=== PATIENT | male | born 1960 | race Caucasian/White ===

== ENCOUNTER 2023-11-07 09:18 | Observation (INO) ==
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
[~2023-11-07 09:18] MED LIST: ACETAMINOPHEN 1000 MG/100 ML IV IV ONE; LACTATED RINGER'S 1,000 ML IV SCH; LR 15ML/HR IV SCH
[2023-11-07] MEDS ORDERED: ATROPINE SULFATE 0.1 MG/ML 10ML SYR IV PRN (10:35)
[2023-11-07] MEDS ORDERED: PROMETHAZINE HCL 6.25 MG in SODIUM CHLORIDE 0.9% 50 ML IV PRN (10:35)
[2023-11-07] MEDS ORDERED: LIDOCAINE 2% 2 ML VIAL/AMP(20MG/ML) INFIL ONE (10:35)
[2023-11-07] MEDS ORDERED: MIDAZOLAM HCL 1 MG/ML 2ML VIAL ONE (10:35)
[2023-11-07] MEDS ORDERED: PROPOFOL IV EMULSION 10 MG/ML 20 ML VIAL IV ONE (10:35)
[2023-11-07] MEDS ORDERED: HYDROmorphone INJ 2 MG/ML SYR/VIAL IV PRN (10:35)
[2023-11-07] MEDS ORDERED: ONDANSETRON INJ 2 MG/ML 2 ML VIAL IV PRN ×2 (10:35→16:49)
[2023-11-07] MEDS ORDERED: ONDANSETRON INJ 2 MG/ML 2 ML VIAL ONE ×2 (10:35→14:57)
[2023-11-07] MEDS ORDERED: ROCURONIUM BROMIDE 10 MG/ML 5 ML VIAL IV ONE ×3 (10:35→14:11)
[2023-11-07] MEDS ORDERED: ePHEDrine sulfate 50 MG/ML AMP IV PRN (10:35)
[2023-11-07] MEDS ORDERED: DEXAMETHASONE SOD INJ 4 MG/ML VIAL ONE (10:35)
[2023-11-07] MEDS ORDERED: fentaNYL citrate PF 100 MCG/2 ML VIAL ONE ×3 (10:36→14:11)
--- NOTE | 2023-11-07 11:30 | History & Physical Bridge Note ---
Date of Service November 07, 2023 History & Physical Bridge Note I have examined the patient, reviewed the History & Physical and in the interval since the performance of the History & Physical I have noted the following changes of clinical significance: no changes noted
[2023-11-07] MEDS ORDERED: BUPIVACAINE 0.5 % 5 MG/1 ML MPF 30ML VIAL ONE (11:42)
[2023-11-07] MEDS ORDERED: FLOSEAL HEMOSTATIC MATRIX 10ML TOP ONE (12:39)
[2023-11-07] MEDS ORDERED: SURGICEL ABSORB HEMOSTAT 2IN X 14IN TOP ONE (12:39)
[2023-11-07] MEDS ORDERED: KETOROLAC 30 MG/ML VIAL ONE (14:56)
[2023-11-07] MEDS ORDERED: SUGAMMADEX SODIUM 200 MG/2 ML VIAL IV ONE (14:57)
[2023-11-07] MEDS ORDERED: HYDROmorphone INJ 2 MG/ML SYR/VIAL ONE (15:16)
--- NOTE | 2023-11-07 15:35 | Operative Report ---
PG Post Operative Report Pre & Post Diagnosis Operation Date: 11/07/23 11:00 Pre-Op Diagnosis: Prostate Cancer Post-Op Diagnosis: Prostate Cancer I identified the patient and participated in the time-out.: Yes Procedure Operation Date: 11/07/23 11:00 Actual Procedures p Robotic Assisted Laparoscopic Radical Retropubic Prostatectomy(Not Applicable) - Hayden Gee MD Surgeon Hayden Gee MD Poultry Picker Teagan Sosa Estimated Blood Loss 150 Findings Consistent with Post-Op Diagnosis Specimens 1. Periprostatic fat 2. Prostate seminal vesicles Description of Procedure The patient was identified in the preoperative holding area, appropriate informed consents were reviewed and completed, and he was transported to the operating suite. Subcutaneous heparin was administered in the pre-operative holding area. Upon arrival in the operating suite, he received appropriate antibiotics and general anesthesia. He was positioned in dorsal lithotomy and prepped and draped in standard fashion. A Lockett catheter was inserted in the sterile field. A Veress needle was passed per umbilicus with uniform insufflation of the abdomen to 15mmHg. He was placed in steep Trendelenburg position. A periumbilical incision was then made to accommodate a 8mm Visiport with 0degree laparoscope. Inspection of the abdomen was carried out, and there was no evidence of traumatic entry or injury secondary to the Veress needle. After confirming a clear anterior abdominal wall, ports were subsequently placed in standard robotic prostatectomy fashion without incident. To begin the robotic portion of the case, the left lateral aspect of the sigmoid was mobilized off of the left pelvic side wall to allow the pouch of Iggy to be appropriately visualized. I then made an incision in the pouch of Iggy, overlying the seminal vesicles. Both SVs as well as the ampullae of the vasa were entirely dissected, with the vasa transected 3cm from the prostate. The medial umbilical ligaments were then controlled with bipolar electrocautery just inferior to the umbilicus. Following cauterization, they were divided utilizing monopolar cautery. A peritoneal incision was carried from this location to the medial aspect of the internal inguinal rings bilaterally with care to avoid opening through the ring. This incision was concluded when the vas deferens was reached. Dissection of the bladder and prostate off of the posterior aspect of the pubic arch was completed allowing full visualization of the prostate. The fat overlying the prostate was removed en bloc and passed off the table as a specimen labeled "periprostatic fat". The endopelvic fascia was cleared during this portion of the procedure, and subsequently opened - first on the right and then the left. The incision through the endopelvic fascia began near the prostate-bladder junction and was carried to the apex with extreme care to preserve all lateral levator musculature as well as the periurethral musculature and sphincter complex. I additionally preserved the puboprostatic ligaments. I then controlled the DVC with a 3-0 V-lock suture in overlapping/figure of 8 fashion. Given his low volume and low grade disease, a lymph node dissection was not indicated. My attention then returned to the prostate, with identification of the bladder neck aided by gentle traction on the Lockett catheter and lateral to medial pressure at the presumed level of the bladder neck with the robotic instruments. An anterior cystotomy was made, the Lockett balloon deflated and the catheter guided through the incision to allow anterior retraction. I attempted to preserve maximal bladder neck musculature as I circumferentially dissected around the bladder neck. Of note, his anterior to posterior distance across the prostate was quite long and his gland while short in length was relatively wide. After incision through the posterior aspect of the mucosa, the dissection was carried through detrusor muscle until the bilateral ampullae of the vasa were identified. The previously dissected vasa and SVs were brought through the incision and used to elevated the prostate anteriorly. A posterior plane behind the prostate was then developed - splitting Denonvilliers's fascia. This dissection was carried as far as possible towards the apex as well as far as possible laterally. An incision in the lateral prostatic fascia was then made bilaterally to facilitate control of the vascular pedicles and preservation of the nerve bundles. Vasculature running along the posterior/lateral aspect of the prostate was preserved as well as the tissue containing the nerves. The pedicles were then controlled with a series of Weck clips and judicious use of bipolar electrocautery. The apical attachments of the prostate were remaining at that stage. The DVC was divided after control with bipolar cautery over the prostate. Continuous inspection from anterior and lateral views allowed me to closely follow the apical contour of the prostate and maximally preserve urethral length and tissue. The prostate was entirely freed at that point, and collected in an EndoCatch bag before being moved out of the field of vision. Hemostasis was confirmed and anastomosis of the bladder and urethra was completed utilizing a double armed V- Lock stitch. A new Lockett catheter was inserted and the anastomosis tested with irrigation. There was no evidence of leak. The robot was undocked, the specimen was extracted through the right 12 mm nutritional assistant port after gentle expansion. The fascia of that port was closed with a running PDS suture. All other incisions were closed with 4-0 Monocryl. All incisions were infiltrated with half percent Marcaine prior to closure. Dermabond was used as a topical dressing. He was reversed from anesthesia and taken to the recovery room in stable condition. Teagan Sosa assisted from incision to closure I attest to the content of the Intraoperative Record and any orders documented therein. Any exceptions are noted below.
[2023-11-07] MEDS: fentaNYL citrate PF 100 MCG/2 ML VIAL IV PRN ×2 (15:36→15:41)
--- NOTE | 2023-11-07 15:40 | Anesthesiology Progress Note ---
Date of Service November 07, 2023 Anesthesia Post Procedure Vital Signs Vital Signs: Temp Pulse Resp BP Pulse Ox O2 Del Method 11/07/23 10:13 36.9 C 95 H 20 154/106 H 98 Room Air Transfer of Care Handoff Completed per policy Notes Mental Status: alert / awake / arousable Patient Amnestic to Procedure: Yes Nausea / Vomiting: adequately controlled Pain: adequately controlled Airway Patency, RR, SpO2: stable & adequate BP & HR: stable & adequate Hydration State: stable & adequate Anesthetic Complications: no major complications apparent
[2023-11-07 15:59] LABS: Hemoglobin 14.2 g/dl (14.0-18.0); Mean Corpuscular Hemoglobin 31.6 pg (25.0-34.0); Mean Corpuscular Hgb Conc 33.8 g/dL (32.0-36.0); Mean Corpuscular Volume 93.5 fL (80.0-100.0); Mean Platelet Volume 8.4 fL (9.4-12.4); Platelet Count 220 K/uL (130-400); RDW Coefficient of Variation 12.3 % (11.5-14.5); RDW Standard Deviation 42.5 fL (36.4-46.3); Red Blood Count 4.49 M/uL (4.70-6.10); White Blood Count 12.74 K/ul (4.8-10.8)
[2023-11-07 16:15] LABS: BUN Creatinine Ratio 11.8 (10-20); Calcium 8.6 mg/dl (8.6-10.3); Est GFR (African American) 74.4 ml/min; Est GFR (Non-African American) 64.2 ml/min; Potassium 4.8 mmol/L (3.5-5.1)
[2023-11-07 16:27] LABS: Basophils # (auto) 0.03 K/uL (0.00-0.20); Basophils % (auto) 0.2 %; Eosinophils # (auto) 0.05 K/uL (0.00-0.50); Eosinophils % (auto) 0.4 %; Immature Granulocytes # (auto) 0.07 K/uL (0.01-0.20); Immature Granulocytes % (auto) 0.5 %; Lymphocytes # (auto) 0.73 K/uL (1.20-3.40); Lymphocytes % (auto) 5.7 %; Monocytes # (auto) 0.23 K/uL (0.11-0.59); Monocytes % (auto) 1.8 %; Neutrophils # (auto) 11.63 K/uL (1.40-6.50); Neutrophils % (auto) 91.4 %
[2023-11-07] MEDS ORDERED: oxyCODONE HCL IR 5 MG TAB (IMMEDIATE RELEASE) PO PRN (16:49)
[2023-11-07] MEDS ORDERED: PHARMACY GLYCEMIC MGMT CONSULT PRN (16:49)
[2023-11-07] MEDS ORDERED: MoRPHine SULFATE 2 MG/ML CARP IV PRN (16:49)
[2023-11-07] MEDS: oxyCODONE HCL IR 5 MG TAB (IMMEDIATE RELEASE) PO PRN ×2 (17:15→23:31)
[2023-11-07] MEDS ORDERED: LANTUS PER UNIT CHARGE SC SCH ×2 (17:30→21:00)
[2023-11-07] MEDS: INSULIN ASPART PER UNIT CHARGE SC SCH ×2 (17:47→20:50)
[2023-11-07] MEDS: ACETAMINOPHEN 325 MG TAB PO SCH ×2 (17:47→23:32)
[2023-11-07] MEDS: LACTATED RINGER'S 1,000 ML IV SCH (17:53)
[2023-11-07] MEDS: ceFAZolin 2000MG 2,000 MG/15 ML SYR IV SCH (20:25)
[2023-11-07] MEDS: DOCUSATE SODIUM 100 MG CAP PO SCH (20:26)
[2023-11-07] MEDS: HEPARIN SOD 5,000 UNIT/0.5 ML VIAL SQ SCH (20:26)
[2023-11-07] MEDS: MoRPHine SULFATE 4 MG/ML 1 ML CARP\\VIAL IV PRN (20:39)
[2023-11-08] MEDS: LACTATED RINGER'S 1,000 ML IV SCH (03:29)
[2023-11-08] MEDS: ceFAZolin 2000MG 2,000 MG/15 ML SYR IV SCH (03:30)
[2023-11-08] MEDS: oxyCODONE HCL IR 5 MG TAB (IMMEDIATE RELEASE) PO PRN ×4 (03:35→20:17)
[2023-11-08] MEDS: ACETAMINOPHEN 325 MG TAB PO SCH ×3 (05:24→17:20)
[2023-11-08] MEDS: MoRPHine SULFATE 4 MG/ML 1 ML CARP\\VIAL IV PRN ×3 (05:28→17:15)
[2023-11-08 06:32] LABS: Basophils # (auto) 0.03 K/uL (0.00-0.20); Basophils % (auto) 0.2 %; Eosinophils # (auto) 0.07 K/uL (0.00-0.50); Eosinophils % (auto) 0.6 %; Immature Granulocytes # (auto) 0.06 K/uL (0.01-0.20); Immature Granulocytes % (auto) 0.5 %; Lymphocytes % (auto) 10.5 %; Mean Corpuscular Hemoglobin 31.3 pg (25.0-34.0); Mean Corpuscular Hgb Conc 33.3 g/dL (32.0-36.0); Mean Corpuscular Volume 93.8 fL (80.0-100.0); Mean Platelet Volume 8.5 fL (9.4-12.4); Monocytes # (auto) 1.06 K/uL (0.11-0.59); Monocytes % (auto) 8.6 %; Neutrophils # (auto) 9.82 K/uL (1.40-6.50); Neutrophils % (auto) 79.6 %; Platelet Count 215 K/uL (130-400); RDW Coefficient of Variation 12.7 % (11.5-14.5); RDW Standard Deviation 43.7 fL (36.4-46.3); Red Blood Count 4.16 M/uL (4.70-6.10); White Blood Count 12.34 K/ul (4.8-10.8)
[2023-11-08 06:52] LABS: BUN Creatinine Ratio 16.8 (10-20); Calcium 8.5 mg/dl (8.6-10.3); Creatinine Clr Calc Pharmacy 82.3 ml/min; Est GFR (African American) 84.6 ml/min; Potassium 4.3 mmol/L (3.5-5.1)
[2023-11-08 07:36] LABS: Estimated Average Glucose 189 mg/dl; Hemoglobin A1C 8.2 % (4.5-5.6)
[2023-11-08] MEDS: INSULIN ASPART PER UNIT CHARGE SC SCH ×4 (07:51→21:44)
[2023-11-08] MEDS: lisinopril 40 MG TAB PO SCH (07:52)
[2023-11-08] MEDS: DICLOFENAC SODIUM 75 MG TABCR PO SCH (07:52)
[2023-11-08] MEDS: METOPROLOL SUCC 25MG EXT REL TAB PO SCH (07:52)
[2023-11-08] MEDS: METOPROLOL SUCC 50MG EXT REL TAB PO SCH (07:52)
[2023-11-08] MEDS: amLODIPine BESYLATE 5 MG TAB PO SCH (07:52)
[2023-11-08] MEDS: DOCUSATE SODIUM 100 MG CAP PO SCH ×2 (07:53→20:18)
[2023-11-08] MEDS: HEPARIN SOD 5,000 UNIT/0.5 ML VIAL SQ SCH ×2 (07:53→20:18)
--- NOTE | 2023-11-08 08:12 | Urology Progress Note ---
Date of Service November 08, 2023 Assessment & Plan (1) Prostate cancer: Plan: Postop day #1 status post robotic prostatectomy Recovering appropriately Ambulate Advance diet Maintain Lockett Discharge home Labs all stable Admission and Anticipated Discharge Date Admission Date: November 07, 2023 Subjective Doing well this morning Modest pain No nausea Hungry and asking for diet Anxious to go home Physical Exam Physical Exam: Abdomen soft, incisions appropriate Urine output clear Results & Data Vital Signs (Past 12 Hours) Vital Signs Temp Pulse Pulse Resp BP Pulse Ox O2 Del Method 11/08/23 07:34 36.8 C 76 16 130/86 95 Room Air 11/08/23 02:56 36.7 C 72 18 115/73 96 Room Air 11/07/23 23:57 36.6 C 83 18 125/81 97 Room Air 11/07/23 20:26 Nasal Cannula O2 Flow Rate 11/08/23 07:34 11/08/23 02:56 11/07/23 23:57 11/07/23 20:26 1 PG Care Time/CCT Total # of Minutes Spent Total Time Spent with Patient: Total time spent is greater than 50% in coordination of care (as documented) at patient's floor/unit and/or counseling patient: Coding Level of Care Code None Diagnoses Prostate cancer C61
--- NOTE | 2023-11-08 09:52 | Pharmacy Report ---
Pharmacy Glycemic Short Note 2 - Date of Service November 08, 2023 - Glycemic Short BSG Results (Last 24 hours): 11/07/23 11/07/23 11/07/23 10:25 15:29 15:40 Glucose 235 H POC Glucose 154 H 222 H 11/07/23 11/07/23 11/08/23 17:36 20:37 05:54 Glucose 123 H POC Glucose 252 H 231 H 11/08/23 07:36 Glucose POC Glucose 116 H OUTPATIENT ANTIDIABETIC REGIMEN: * metformin ER 1500mg QAM * Jardiance 10mg QAM * Semaglutide 14 mg PO QAM * glimeperide 6mg PO QAM * HbA1c 8.2% (11/08/23) ASSESSMENT: * Morgan is a 63 YOM admitted status post prostatectomy secondary to prostate cancer with a history of T2DM. Pharmacy has been consulted for glycemic management while inpatient. * Preoperative BSG slightly above goal range yesterday. Received 4 mg of IV dexamethasone during procedure. BSGs significantly increased by the afternoon. Given 20 units of Lantus total to cover steroids and Novolog initiated at a weight based stress of 2. * Morgan received 40 units of insulin yesterday (20 basal) * Fasting BSG this AM in goal range, no ongoing steroids ordered will hold basal insulin for now * Will loosen Novolog as no ongoing steroids are ordered. * Diet advanced this morning, will continue to monitor for increased insulin needs PLAN FOR INPATIENT GLYCEMIC CONTROL: * Hold outpatient oral diabetes medications * Basal insulin * hold for now * Bolus insulin * NovoLog per scale ACHS or Q6hrs while NPO * Goal Range: Low 110 mg/dL - High 140 mg/dL * Correction Factor: 20 mg/dL/unit * Nutritional / Prandial insulin per carb ratio of 1 unit per 6 grams CHO consumed
[2023-11-09] MEDS: ACETAMINOPHEN 325 MG TAB PO SCH ×2 (00:10→05:47)
[2023-11-09] MEDS: oxyCODONE HCL IR 5 MG TAB (IMMEDIATE RELEASE) PO PRN ×2 (01:13→05:47)
[2023-11-09 06:52] LABS: Basophils # (auto) 0.04 K/uL (0.00-0.20); Basophils % (auto) 0.4 %; Eosinophils % (auto) 2.9 %; Hematocrit (blood only) 38.1 % (42.0-52.0); Hemoglobin 13.1 g/dl (14.0-18.0); Immature Granulocytes # (auto) 0.05 K/uL (0.01-0.20); Immature Granulocytes % (auto) 0.5 %; Lymphocytes # (auto) 1.85 K/uL (1.20-3.40); Lymphocytes % (auto) 17.6 %; Mean Corpuscular Hemoglobin 32.3 pg (25.0-34.0); Mean Corpuscular Hgb Conc 34.4 g/dL (32.0-36.0); Mean Corpuscular Volume 94.1 fL (80.0-100.0); Mean Platelet Volume 8.8 fL (9.4-12.4); Monocytes # (auto) 0.98 K/uL (0.11-0.59); Monocytes % (auto) 9.3 %; Neutrophils # (auto) 7.27 K/uL (1.40-6.50); Neutrophils % (auto) 69.3 %; Platelet Count 175 K/uL (130-400); RDW Coefficient of Variation 12.8 % (11.5-14.5); RDW Standard Deviation 44.2 fL (36.4-46.3); Red Blood Count 4.05 M/uL (4.70-6.10); White Blood Count 10.49 K/ul (4.8-10.8)
[2023-11-09 07:20] LABS: BUN Creatinine Ratio 18.5 (10-20); Calcium 8.4 mg/dl (8.6-10.3); Creatinine Clr Calc Pharmacy 81.5 ml/min; Est GFR (African American) 83.6 ml/min; Est GFR (Non-African American) 72.2 ml/min
[2023-11-09] MEDS: DICLOFENAC SODIUM 75 MG TABCR PO SCH (07:29)
[2023-11-09] MEDS: lisinopril 40 MG TAB PO SCH (07:29)
[2023-11-09] MEDS: METOPROLOL SUCC 50MG EXT REL TAB PO SCH (07:29)
[2023-11-09] MEDS: METOPROLOL SUCC 25MG EXT REL TAB PO SCH (07:29)
[2023-11-09] MEDS: amLODIPine BESYLATE 5 MG TAB PO SCH (07:29)
[2023-11-09] MEDS: HEPARIN SOD 5,000 UNIT/0.5 ML VIAL SQ SCH (07:30)
[2023-11-09] MEDS: DOCUSATE SODIUM 100 MG CAP PO SCH (07:30)
--- NOTE | 2023-11-09 08:25 | Urology Progress Note ---
Date of Service November 09, 2023 Assessment & Plan (1) Prostate cancer: Plan: POD#2 s/p status post robotic prostatectomy with Dr. Gee Afebrile, hemodynamically stable Labs stable Recovering appropriately Subjectively doing much better today Pain is adequately controlled Ambulating and tolerating diet Maintain Lockett Discharge to home today with catheter Expected clinical course reviewed, all questions answered Will arrange outpatient follow-ups for catheter removal and pathology review Admission and Anticipated Discharge Date Admission Date: November 07, 2023 Subjective Doing much better this morning Pain adequately controlled He has been ambulating in the hallway Tolerating diet No nausea or vomiting, + Flatus Lockett patent and draining clear urine No fever or chills Feels ready to go home today Review of Systems Constitutional: as per Subjective / HPI Gastrointestinal: as per Subjective / HPI Genitourinary: + as per Subjective / HPI Physical Exam Constitutional: well developed and well nourished; no acute distress Respiratory: normal respiratory effort; no respiratory distress and no labored breathing Gastrointestinal (Abdomen): Percussion/Palpation: abdomen soft Musculoskeletal: Head/Neck/Chest: normocephalic Skin: Incisions appropriate Neurologic: moves all extremities and awake Psychiatric: Orientation: alert and oriented x 3 Genitourinary: Lockett draining clear yellow urine Results & Data Vital Signs (Past 12 Hours) Vital Signs Temp Pulse Resp BP Pulse Ox O2 Del Method 11/09/23 07:22 36.6 C 76 16 133/86 98 Room Air 11/08/23 20:17 Room Air PG Care Time/CCT Total # of Minutes Spent Total Time Spent with Patient: Total time spent is greater than 50% in coordination of care (as documented) at patient's floor/unit and/or counseling patient: Coding Level of Care Code None Diagnoses Prostate cancer C61
--- NOTE | 2023-11-09 08:27 | Discharge Summary ---
Date of Service November 09, 2023 Admission HPI Per Admitting Provider Patient with prostate cancer here for robotic prostatectomy. Admission Exam Per Admitting Provider General: Alert and oriented, no acute distress HEENT: Normocephalic, mucous membranes moist Pulmonary: Nonlabored respirations Abdomen: Nondistended Extremities: Moves all 4 spontaneously Neuro: No gross deficits Skin: Warm, dry, no rashes noted Principal Diagnosis Prostate Cancer Discharge Exam Constitutional well developed and well nourished; no acute distress Respiratory normal respiratory effort; no respiratory distress and no labored breathing Gastrointestinal (Abdomen) Percussion/Palpation: abdomen soft Musculoskeletal Head/Neck/Chest: normocephalic Neurologic moves all extremities and awake Psychiatric Orientation: alert and oriented x 3 Genitourinary Lockett draining clear yellow urine Discharge Data Allergies Allergy/AdvReac Type Severity Reaction Status Date / Time No Known Allergies Allergy Verified 11/07/23 10:00 Procedures Performed Operation Date: 11/07/23 11:00 Actual Procedures p Robotic Assisted Laparoscopic Radical Retropubic Prostatectomy(Not Applicable) - Hayden Gee MD Hospital Course (1) Prostate cancer: POD#2 s/p status post robotic prostatectomy with Dr. Gee Afebrile, hemodynamically stable Labs stable Recovering appropriately Subjectively doing much better today Pain is adequately controlled Ambulating and tolerating diet Maintain Lockett Discharge to home today with catheter Expected clinical course reviewed, all questions answered Will arrange outpatient follow-ups for catheter removal and pathology review Total Time Total Time Spent Total Time Spent (In Minutes): 29 Discharge Plan Discharge Items Patient Disposition: Home - Self-Care Reason For Visit: Prostate Cancer Discharge Diagnosis: Prostate cancer Activity: Per Instructions section Lifting: No more than 25 pounds Bathing Comment: Okay to shower after discharge, no tub bath or soaking Sexual Activity: Wait until after follow-up appointment Exercise/Sports: Wait until after follow-up appointment Driving/Machine Use: No driving while taking prescription pain medication Non-emergency contact: Surgeon and Urologist Call non-emergency contact if: your pain is not controlled, you have a fever, your temperature is above 101, your wound has increased redness, your wound has increased drainage and your wound pain has increased Follow-up/Referrals: Johnny Somers MD [Primary Care Provider] - Diet: Carb Consistent or DM2 Addtl Attending Provider Instructions: Please take all medications as prescribed and keep all follow-ups as scheduled. Please call our office at [phone] with any questions, concerns or need to reschedule appointments for any reason. We are happy to assist you. We have sent an antibiotic to your pharmacy of choice. Please begin antibiotic as prescribed the day BEFORE your scheduled voiding trial at [facility]. Please continue antibiotic every 12 hours through the day AFTER your voiding trial. Activity: We recommend having someone with you for the first few days after surgery to help care for you. For the first 2 weeks after surgery, we would like you to get up and walk around your house. However, we recommend limit physical activity that would increase your heart rate. This will allow your body to rest and heal. Take naps if you feel tired. Don't lift anything heavier than 10 pounds, mow the law or ride a bicycle until your follow-up appointment. Please avoid long car rides. Home Care: Unless directed otherwise, drink 6 to 8 glasses of water a day (enough to keep your urine light colored). This will also help keep a healthy flow of urine. We recommend using a stool softener for the first two weeks to avoid constipation. Lockett Catheter or Suprapubic Catheter care: Keep the catheter well secured with either a leg back or leg strap with large bag. Empty your bag when it's about half full. You may notice some blood in the bag. This is normal after surgery and while the catheter is in place. Use mild soap (such as Dove or Dial) and water to wash the catheter and the head of your penis daily, or more frequently if needed. Return to your normal diet, we encourage good protein intake to promote healing. You may shower as normal. Please avoid tub baths or soaking until catheter removed and incisions well healed. Wearing sweat pants while you have the catheter is recommended, they will be more comfortable. Follow-up Your follow up appointments for having your catheter removed, and follow up with your physician should already be scheduled. If you have any questions regarding this, please contact our office. Your final pathology report will be discussed at your physician follow-up appointment. Call [facility] at [phone] right away if you have any of the following: Chest pain or trouble breathing (call 911 or go to the hospital) Fever of 101F or higher, uncontrolled vomiting Heavy bleeding, clots, or bright red blood from the catheter Catheter that falls out or stops draining Foul-smelling discharge from your catheter Redness, swelling, warmth, or increased pain at your incision site Drainage, pus, or bleeding from your incision Pending Studies at Discharge: Yes (pathology) Stand-Alone Forms: My [facility], Pain - Opioid Pain Management, Smoking Cessation Medications and DC Order Prescriptions: New ciprofloxacin HCl 500 mg tablet 500 mg PO BID Qty: 6 0RF Rx Instructions: Start 1 day prior to catheter removal docusate sodium [Colace] 100 mg capsule 100 mg PO BID Qty: 60 0RF Rx Instructions: Take twice daily for 2 weeks, then as needed for constipation. oxycodone-acetaminophen [Percocet] 5-325 mg tablet 1 tab PO TID PRN (Reason: pain) Qty: 10 0RF Rx Instructions: post op pain Continued diclofenac sodium 75 mg tablet,delayed release (DR/EC) 75 mg PO QAM lisinopril 40 mg tablet 40 mg PO QAM amlodipine 10 mg tablet 10 mg PO QAM glimepiride 2 mg tablet 6 mg PO QAM metformin 500 mg tablet,ER angel.retention 24 hr 1,500 mg PO QAM semaglutide 14 mg tablet 14 mg PO QAM metoprolol succinate 50 mg tablet extended release 24 hr 50 mg PO QAM Rx Instructions: combined with 12.5mg QAM metoprolol succinate 25 mg Tablet Extended Release 24 Hr 12.5 mg PO QAM Rx Instructions: combine with 50mg tablet QAM Jardiance 10 mg Tablet 10 mg PO QAM Patient Comments: as of 11/01/23, waiting to receive medication to start Discontinued tamsulosin 0.4 mg capsule 0.4 mg PO QAM Discharge Orders: Discharge Order (Routine); Ordered 11/09/23 Ordered By: Teagan Verduzco/Other Patient Handouts: Managing Type 2 Diabetes, How to Check Your Blood Sugar, Urinary Catheter Bag Empty Clean, Leg Bag Care Dc, ED Lockett Catheter, Care Admission Data Admit Date/Time: 11/07/23 15:27 Attending Provider: Hayden Gee Admit Provider: Hayden Gee Primary Care Provider: Johnny Somers Other Interventions: Discharge Summary Assessment (RN) Last Done: 11/09/23 10:38 Coding Level of Care Code 71807 IN/OBS DISCH 30 MIN/LESS Diagnoses Prostate cancer C61
[2023-11-09] MEDS: INSULIN ASPART PER UNIT CHARGE SC SCH (08:56)
[2023-11-09] MEDS ORDERED: GLIMEPIRIDE 2 MG TAB PO SCH (09:00)
[2023-11-09] MEDS ORDERED: metFORMIN HCL ER 500 MG TABCR PO SCH (09:00)
== END 2023-11-09 11:12 | disposition home or self-care (01) ==
LOC: ASU 09:18 → 3E 15:27 → INTOOBSV 15:27